=== PATIENT | female | born 2000 | race Caucasian/White ===

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

== ENCOUNTER → 2023-05-29 | Outpatient (CLI) | payer OTHER, SELFPAY | END | disposition home or self-care (01) | LOC: PSN 09:24 | PROVIDERS: PCP Nurse Practitioner; Referring Provider Nurse Practitioner; Visit Provider Nurse Practitioner | DX: J45.909 Unspecified asthma, uncomplicated (principal) | CPT/HCPCS: 94060; 94726; 94729 ==

== ENCOUNTER → 2023-08-10 | Outpatient (CLI) | payer OTHER, SELFPAY ==
[2023-08-10 12:22] LABS: Absolute Lymphocyte Count 1.89 X10^3/uL (0.83-4.51); Absolute Neutrophil Count 4.4 X10^3/uL (2.0-7.7); Basophil# 0.05 X10^3/uL; Basophil% 0.7 % (0-1); Eosinophil# 0.61 X10^3/uL; Eosinophils% 8.1 % (0-5); Hematocrit 45.3 % (37-47); Hemoglobin 15.1 g/dL (12.0-15.0); Lymphocyte # 1.89 X10^3/ul (0.83-4.51); Lymphocyte % 25.1 % (19-41); Mean Corp Hgb Conc 33.3 g/dL (32-36); Mean Corpuscular Hgb 31.5 pg (27.0-32.0); Mean Corpuscular Volume 94.6 fL (81-99); Monocyte# 0.48 X10^3/uL; Monocyte% 6.4 % (0-10); NRBC Flagged by Analyzer 0 % (0-5); Neutrophil # 4.43 X10^3/uL (2.7-7.7); Neutrophil % 58.6 % (47-70); Platelet Count 260 K/mm3 (150-450); RBC Distribution Width CV 13.1 % (11.6-14.6); RBC Distribution Width SD 45.3 fl (35.1-43.9); Red Blood Count 4.79 M/mm3 (4.2-5.4); White Blood Count 7.5 K/mm3 (4.4-11.0)
[2023-08-10 13:13] LABS: AST(SGOT) 12 U/L (15-37); Alanine Aminotransfer ALT/SGPT 20 U/L (13-56); Albumin, Serum 3.9 g/dL (3.2-5.0); Alkaline Phosphatase 114 U/L (45-117); Anion Gap 6 (5-15); BUN 9 mg/dL (7-18); BUN/Creat Ratio 15.3 RATIO (10-20); Calcium,Total 8.9 mg/dL (8.5-10.1); Chloride 109 mmol/L (98-107); Creatinine, Serum 0.59 mg/dL (0.55-1.02); EST Glomerular Filtration Rate 137 mL/min (>60); Est Glom Filt Rate - Afr Amer 166 mL/min (>60); Free T3 3.1 pg/mL (2.18-3.98); Globulin 3.8 g/dL (2.2-4.2); Glucose 83 mg/dL (74-106); Potassium 3.8 mmol/L (3.5-5.1); Protein, Total 7.7 g/dL (6.4-8.2); Sodium Level 139 mmol/L (136-145); T4 Free Direct 0.91 ng/dL (0.76-1.46); T4 Total, Thyroxin 7.1 ug/dL (4.8-13.9); Thyroid Stim Hormone (TSH) 0.84 uIU/mL (0.358-3.74)
== END | disposition home or self-care (01) ==
LOC: LAB 11:11
PROVIDERS: PCP Nurse Practitioner; Referring Provider Nurse Practitioner; Visit Provider Nurse Practitioner
DX: R00.2 Palpitations (principal); G47.00 Insomnia, unspecified; F41.9 Anxiety disorder, unspecified; J45.909 Unspecified asthma, uncomplicated
CPT/HCPCS: 36415; 80053; 83735; 84436; 84439; 84443; 84481; 85025

== ENCOUNTER 2024-11-03 19:02 | Emergency (ER) | payer OTHER, SELFPAY ==
[2024-11-03 19:02] VITALS: BP 150/138; PULSE 146; RESP 24; TEMP 37.1; O2SAT 95; BMI 22.0
[2024-11-03 19:10] VITALS: O2SAT 94
--- NOTE | 2024-11-03 19:10 | EKG12_ITS ---
Test Reason : CP Blood Pressure : */* mmHG Vent. Rate : 128 BPM Atrial Rate : 128 BPM P-R Int : 132 ms QRS Dur : 74 ms QT Int : 286 ms P-R-T Axes : 67 84 47 degrees QTcB Int : 417 ms Sinus tachycardia Otherwise normal ECG Confirmed by Alfonso Lerma ([id number]), editor managing director STEVEN RIOS ([id number]) on 11/04/2024 11:27:39 AM Referred By: ES Confirmed By: Alfonso Lerma
--- NOTE | 2024-11-03 19:10 | EKG12_ITS ---
Test Reason : CP Blood Pressure : */* mmHG Vent. Rate : 128 BPM Atrial Rate : 128 BPM P-R Int : 132 ms QRS Dur : 74 ms QT Int : 286 ms P-R-T Axes : 67 84 47 degrees QTcB Int : 417 ms Sinus tachycardia Otherwise normal ECG Confirmed by Alfonso Lerma ([id number]), research editor STEVEN RIOS ([id number]) on 11/04/2024 11:27:39 AM Referred By: ES Confirmed By: Alfonso Lerma
--- NOTE | 2024-11-03 19:29 | EDS_ITS ---
HPI History of Present Illness Chief Complaint: Shortness of Breath Informant: patient Onset/Context/Timing Onset: Today Context: gradual Timing: Continuous Quality: Positive for Wheezing Worsened by: Nothing Relieved by: Albuterol Associated Symptoms cough, rhinorrhea, post nasal drip and sore throat; Negative for ear pain, fever , chills, sweats, clear sputum, white sputum, yellow sputum or green sputum Chest Pain: Positive for Tightness Narrative Narrative: Patient presents with shortness of breath became worse today. Patient states it is gradually getting worse. Patient states she feels herself wheezing. Patient states nothing makes it worse. Patient states that albuterol aerosols have been helping. Patient admits to a cough but denies any sputum production. Patient admits to recent sinus drainage and infection. Patient denies any fevers or chills. Patient describes her pain as tightness across her chest. PE Risk Factors: Negative for Cancer, OCP + Smoking + > 35, Prior DVT or PE, Rec ent immobilization, Recent surgery or Recent travel [facility] Medical History (Updated 11/03/24 @ 21:[address] Clifton Torres, DO) Postural orthostatic tachycardia syndrome Asthma Home Medications ?Medication ?Instructions ?Recorded ?Last Taken ?Type fluticasone 55 mcg-salmeterol 14 2 inh inhalation BID #1 ea 08/09/23 Unknown Rx mcg/actuation breath activated powder levocetirizine 5 mg tablet 5 mg PO QPM #90 tabs Unknown Rx nitrofurantoin 1 cap PO BID 10/04/23 Unknow n History monohydrate/macrocrystals 100 mg capsule paroxetine HCl 20 mg tablet 20 mg PO DAILY #90 tabs Unknown Rx trazodone 50 mg tablet 50 mg PO QHS PRN insomnia 90 days 10/04/23 Unknown Rx #1 TAB albuterol sulfate 90 mcg/actuation 2 puff inhalation Q 4H PRN PRN 11/03/24 Unknown Rx aerosol inhaler (Ventolin HFA) Wheezing ##1 prednisone 20 mg tablet 60 mg (3 x 20 mg) PO DAILY # 15 11/03/24 Unknown Rx TABLETS Allergy/AdvReac Type Severity Reaction Status Date / Time animal dander Allergy Mild Hives Verified 11/03/24 19:05 Surgical History (Updated 11/03/24 @ 19:[address] Clifton Torres DO) Hx of tonsillectomy Social History Smoking Status: Light Smoker (<10/day) alcohol intake: never substance use type: does not use, marijuana and other details: medical,card what type of physical activity do you participate in: none ROS ROS ED Constitutional Constitutional ED: Denies chills or fever(s) Eyes Eyes: Denies blurry vision or change in vision ENT ENT ED: Reports rhinorrhea and sore throat Cardiovascular Cardiovascular: Reports chest pain; Denies palpitations Respiratory/Chest Respiratory/Chest: Reports cough and dyspnea Gastrointestinal Gastrointestinal: Denies nausea or vomiting Genitourinary Genitourinary ED: Denies dysuria or hematuria Musculoskeletal Musculoskeletal: Denies back pain or neck pain Integumentary Denies abscess or rash Neurologic Neurologic: Reports headache(s); Denies weakness Allergic/Immunologic Allergic/Immunologic ED: Denies mouth swelling or urticaria EXAM Physical Exam Const Vital Signs: 11/03/24 19:02 11/03/24 19:10 11/03/24 19:57 Temperature 98.7 F Temperature Source Temporal Pulse Rate 146 H 134 H Respiratory Rate 24 H 16 Respiratory Effort Short of Breath Respiratory Pattern Tachypnea Normal Blood Pressure 150/138 H Blood Pressure Mean 142 Pulse Ox 95 Oxygen Delivery Method Room Air Room Air 11/03/24 20:02 Temperature 98.1 F Temperature Source Oral Pulse Rate 131 H Respiratory Rate 20 H Respiratory Effort Respiratory Pattern Blood Pressure 123/93 H Blood Pressure Mean 103 Pulse Ox 96 Oxygen Delivery Method Room Air Positive well nourished and well developed General Appearance ED: well developed and NAD HEENT Reports moist mucous membranes atraumatic Neck supple, no meningeal signs and no JVD Resp normal respiratory effort Auscultation: wheezes expiratory wheezes and throughout Cardio regular rhythm Rate: tachycardic GI non-tender and non-distended Neuro oriented x3, CN's II-XII intact bilaterally and no sensory deficits noted Stephy Coma Scale: document GCS findings Spontaneous Obeys Commands Oriented 15 Sensorium / Orientation: alert Motor Exam: strength 5/5 throughout Psych mental status grossly normal MDM MDM MDM Narrative Medical decision making narrative: Differential diagnosis includes asthma exacerbation, pneumonia, bronchitis, viral upper respiratory infection, cardiac dysrhythmia, cardiac ischemia, and anxiety. EKG will be obtained to assess for cardiac dysrhythmia and cardiac ischemia. Chest x-ray will be obtained to assess for pneumonia and bronchitis. CBC will be obtained to assess for leukocytosis and anemia. Basic metabolic profile will be obtained to assess for electrolyte abnormality and renal function. History & Record Review Additional record(s) reviewed:: Prior outpatient record, Prior ED visit and Prior labs Lab Data Attestation: I reviewed the patient's lab results. Lab results narrative: CBC was reviewed and was within normal limits. Basic metabolic profile was reviewed. Potassium was slightly low at 3.2. This is likely due to the frequent aerosols. The remainder is within normal limits. Labs: Laboratory Results - last 24 hr 11/03/24 19:13 WBC 9.9 RBC 5.15 Hgb 16.0 H Hct 47.6 H MCV 92.4 MCH 31.1 MCHC 33.6 RDW Std Deviation 43.9 RDW Coeff of Jurgen 12.9 Plt Count 190 MPV 9.3 Immature Gran % (Auto) 0.500 Neut % (Auto) 78.1 H Lymph % (Auto) 10.2 L [place] % (Auto) 8.1 Eos % (Auto) 2.5 Baso % (Auto) 0.6 Absolute Neuts (auto) 7.7 Absolute Lymphs (auto) 1.01 Nucleated RBC % 0 Sodium 142 Potassium 3.2 L Chloride 106 Carbon Dioxide 20.0 L Anion Gap 16 H BUN 5 Creatinine 0.68 L Estim Creat Clear Calc 130.91 Est GFR (MDRD) Non-Af 126 BUN/Creatinine Ratio 7.7 L Glucose 90 Calcium 9.3 Radiography Chest X-Ray - ED: 2 View, Read by ED Physician, Read by Radiologist and No Acute Disease Diagnostic Testing: Clinical Impression(s) from Imaging Studies Chest X-Ray 11/03/24 19:40 IMPRESSION: No focal consolidation. Reading Location: [facility] PA and lateral chest x-ray was obtained. There are 2 views. On my independent interpretation, lung haynes are clear. There is normal cardiac silhouette. Bony thorax is normal. There is no acute process noted. Radiologist also interpreted the x-ray and agrees. EKG Initial EKG: Attestation: I personally reviewed and interpreted this EKG as follows: Interpretation: No Acute Injury Pattern and Sinus Tachycardia (128) Comments: EKG was obtained. On my independent interpretation, it showed a sinus tachycardia with a rate of 128. PA interval, QRS interval, and QTc intervals were all normal. Collins was normal. There are no acute ST or T wave changes. Prior EKG tracings: not available for review Prior: No Prior Treatment and Re-Evaluation :: Patient was given albuterol aerosol here. Patient was seen in urgent care and was given a DuoNeb aerosol prior to arrival. Patient was given a dose of Solu- Medrol here. Patient was feeling better on reevaluation. Patient only had a very slight expiratory wheeze on reevaluation. Patient was given a prescription for prednisone. Patient stated she needed a refill of her albuterol inhaler. This was prescribed as well. Patient was instructed to follow-up with her primary care physician in 5 to 7 days. Patient understood and was agreeable with the plan. All questions were answered. Discharge Plan Triage Chief Complaint: Shortness of Breath ED Provider: Clifton Torres Dx/Rx/DC Orders Clinical Impression: Asthma, Tachycardia Instructions: ED Asthma, Acute (Adult) Prescriptions: New prednisone 20 mg tablet 60 mg PO DAILY Qty: 15 0RF albuterol sulfate [Ventolin HFA] 90 mcg/actuation HFA aerosol inhaler 2 puff inhalation Q4H PRN PRN (Reason: Wheezing) Qty: 1 0RF Discontinued albuterol sulfate 90 mcg/actuation HFA aerosol inhaler 2 puff inhalation Q6H PRN (Reason: shortness of breath or wheezing) 90 Days Qty: 8.5 1RF No Action levocetirizine 5 mg tablet 5 mg PO QPM Qty: 90 0RF fluticasone propion-salmeterol 55-14 mcg/actuation aerosol powdr breath activated 2 inh inhalation BID Qty: 1 2RF nitrofurantoin monohyd/m-cryst 100 mg capsule 1 cap PO BID paroxetine HCl 20 mg tablet 20 mg PO DAILY Qty: 90 1RF trazodone 50 mg tablet 50 mg PO QHS PRN (Reason: insomnia) 90 Days Qty: 1 1RF Primary Care Provider: Care Physician,No Primary Referrals: Gretchen Westfall NP-C [Med Staff - Adv Practice Prof] - 5-7 Days Print Language: Citizen Of [place] Disposition Disposition: Home, Self Care
[2024-11-03 19:38] LABS: Hematocrit 47.6 % (37-47); Hemoglobin 16.0 g/dL (12.0-15.0); Immature Granulocytes Count 0.050 X10^3/uL (0.0-0.0); Mean Corp Hgb Conc 33.6 g/dL (32-36); Mean Corpuscular Volume 92.4 fL (81-99); Mean Platelet Vol. 9.3 fl (6.2-12.0); NRBC Flagged by Analyzer 0 % (0-5); Platelet Count 190 K/mm3 (150-450); RBC Distribution Width CV 12.9 % (11.6-14.6); RBC Distribution Width SD 43.9 fl (35.1-43.9); Red Blood Count 5.15 M/mm3 (4.2-5.4); White Blood Count 9.9 K/mm3 (4.4-11.0)
--- NOTE | 2024-11-03 19:40 | RAD_ITS ---
PROCEDURE: CHEST PA AND LATERAL 11/03/2024 REASON FOR EXAM: DYSPNEA TECHNIQUE: CHEST PA AND LATERAL COMPARISON: 01/22/2021 FINDINGS: No focal consolidation. No pleural effusion or pneumothorax. Cardiac silhouette is within normal limits. No acute fractures. RAD/Chest PA and Lateral IMPRESSION: No focal consolidation. Reading Location: [id number]
--- NOTE | 2024-11-03 19:40 | RAD_ITS ---
PROCEDURE: CHEST PA AND LATERAL 11/03/2024 REASON FOR EXAM: DYSPNEA TECHNIQUE: CHEST PA AND LATERAL COMPARISON: 01/22/2021 FINDINGS: No focal consolidation. No pleural effusion or pneumothorax. Cardiac silhouette is within normal limits. No acute fractures. RAD/Chest PA and Lateral IMPRESSION: No focal consolidation. Reading Location: [id number]
[2024-11-03 19:57] VITALS: PULSE 134; RESP 16
[2024-11-03] MEDS: Albuterol 2.5 MG/3 ML VIAL.NEB. INHALATION (19:57)
[2024-11-03 20:02] VITALS: BP 123/93; PULSE 131; RESP 20; TEMP 36.7; O2SAT 96
[2024-11-03 20:10] LABS: Anion Gap 16 (5-15); BUN 5 mg/dL (4-19); BUN/Creat Ratio 7.7 RATIO (10-20); Calcium,Total 9.3 mg/dL (7.6-11.0); Carbon Dioxide 20.0 mmol/L (21.0-32.0); Chloride 106 mmol/L (98-108); Estimated Creatinine Clearance 130.91 ml/min (50-250); Glucose 90 mg/dL (70-99); Potassium 3.2 mmol/L (3.3-5.1)
--- NOTE | 2024-11-03 20:19 | CM.ED ---
Social work Reason for referral: no PCP Referral source: case find SW identified patient's lack of PCP and need for resources. SW entered patient's room, introducing self and role at [facility]. Patient welcomed SW visit and confirmed lack of PCP. Patient accepted resources of [facility] Provider Directory and Dennise Cunningham information. Patient expressed some frustration with providers leaving after patient gets established and/or nobody taking new patients where patient has called. No further needs identified. Jenn Mejia, [employer]ER, EMPLOYMENT EDUCATIONAL [employer]ORD
--- NOTE | 2024-11-03 20:19 | CM.ED ---
Social work Reason for referral: no PCP Referral source: case find SW identified patient's lack of PCP and need for resources. SW entered patient's room, introducing self and role at [facility]. Patient welcomed SW visit and confirmed lack of PCP. Patient accepted resources of [facility] Provider Directory and Dennise Cunningham information. Patient expressed some frustration with providers leaving after patient gets established and/or nobody taking new patients where patient has called. No further needs identified. Jenn Mejia, QA CONSULTANT, LUSTERER
[2024-11-03 21:18] VITALS: BP 100/70; PULSE 117; RESP 20; TEMP 36.7; O2SAT 96
== END 2024-11-03 21:19 | disposition home or self-care (01) ==
PROVIDERS: Emergency Provider Emergency Medicine; Visit Provider Emergency Medicine
DX: J45.909 Unspecified asthma, uncomplicated (principal); R00.0 Tachycardia, unspecified; F17.210 Nicotine dependence, cigarettes, uncomplicated; R05.9 Cough, unspecified; J02.9 Acute pharyngitis, unspecified; J34.89 Other specified disorders of nose and nasal sinuses
CPT/HCPCS: 71046; 80048; 85025; 93005; 94640; 96374; 99284; A4216

== ENCOUNTER 2024-12-02 14:39 | Emergency (ER) | payer OTHER, SELFPAY ==
[2024-12-02] VITALS (7 sets, daily range): BP systolic 107–141; BP diastolic 76–108; PULSE 86–132; RESP 16–20; TEMP 36.6; O2SAT 93–98; BMI 25.3
--- NOTE | 2024-12-02 15:11 | EDS_ITS ---
HPI History of Present Illness Chief Complaint: Shortness of Breath Informant: patient Narrative Narrative: Here with her mother for evaluation of worsening dyspnea since yesterday. Productive cough for the past 5 days. No fever or chills. States rattling in her chest. Asthma history wheezing using her inhaler last used an hour ago. Occasional tobacco. No diabetes. History of POTS syndrome. No vomiting diarrhea. Was seen 3 weeks ago per patient for asthma flare improved with steroids. Reported she was 87% room air on arrival she is placed on 2 L. She is tachycardic however she reports history of POTS syndrome. She also does have a nebulizer at home. PE Risk Factors: Negative for Cancer, OCP + Smoking + > 35, Prior DVT or PE, Recent immobilization, Recent surgery or Recent travel Prior similar symptoms: [facility] Medical History Postural orthostatic tachycardia syndrome Asthma Home Medications ?Medication ?Instructions ?Recorded ?Last Taken ?Type fluticasone 55 mcg-salmeterol 14 2 inh inhalation BID #1 ea 08/09/23 Unknown Rx mcg/actuation breath activated powder levocetirizine 5 mg tablet 5 mg PO QPM #90 tabs Unknown Rx nitrofurantoin 1 cap PO BID 10/04/23 Unknow n History monohydrate/macrocrystals 100 mg capsule paroxetine HCl 20 mg tablet 20 mg PO DAILY #90 tabs Unknown Rx trazodone 50 mg tablet 50 mg PO QHS PRN insomnia 90 days 10/04/23 Unknown Rx #1 TAB albuterol sulfate 90 mcg/actuation 2 puff inhalation Q 4H PRN PRN 11/03/24 Unknown Rx aerosol inhaler (Ventolin HFA) Wheezing ##1 prednisone 20 mg tablet 60 mg (3 x 20 mg) PO DAILY # 15 11/03/24 Unknown Rx TABLETS albuterol sulfate 2.5 mg/3 mL 2.5 mg (3 mL) inhalation Q4H PRN 12/02/24 Unknown Rx (0.083 %) solution for nebulization #25 vials albuterol sulfate 90 mcg/actuation 1 - 2 puff inhalati on Q4H PRN PRN 12/02/24 Unknown Rx aerosol inhaler (Ventolin HFA) Wheezing ##1 prednisone 20 mg tablet 60 mg (3 x 20 mg) PO DAILY # 12 12/02/24 Unknown Rx TABLETS Allergy/AdvReac Type Severity Reaction Status Date / Time animal dander Allergy Mild Hives Verified 11/03/24 19:05 Surgical History Hx of tonsillectomy Social History Smoking Status: Light Smoker (<10/day) alcohol intake: never substance use type: does not use, marijuana and other details: medical,card what type of physical activity do you participate in: none ROS ROS ED Constitutional Constitutional ED: Denies fever(s) Cardiovascular Cardiovascular: Denies chest pain Respiratory/Chest Respiratory/Chest: Reports cough and dyspnea Gastrointestinal Gastrointestinal: Denies diarrhea or vomiting Musculoskeletal Musculoskeletal: Denies none Integumentary Denies rash or wounds Neurologic Neurologic: Denies weakness EXAM Physical Exam Const Vital Signs: 12/02/24 14:39 12/02/24 15:30 12/02/24 15:30 Temperature 97.8 F Temperature Source Temporal Pulse Rate 132 H Respiratory Rate 20 H Respiratory Effort Short of Breath Accessory Muscle Use Respiratory Depth Deep Respiratory Pattern Tachypnea Blood Pressure 116/80 Blood Pressure Mean 92 Pulse Ox 95 Oxygen Delivery Method Nasal Cannula Room Air Nasal Cannula Oxygen Flow Rate (L/min) 2 2 12/02/24 15:39 12/02/24 16:00 12/02/24 17:00 Temperature 97.8 F Temperature Source Oral Pulse Rate 90 98 86 Respiratory Rate 20 H 17 16 Respiratory Effort Respiratory Depth Respiratory Pattern Blood Pressure 141/108 H 107/82 H 113/76 Blood Pressure Mean 119 90 88 Pulse Ox 95 95 93 Oxygen Delivery Method Nasal Cannula Room Air Room Air Oxygen Flow Rate (L/min) 2 12/02/24 17:36 Temperature 97.8 F Temperature Source Pulse Rate 86 Respiratory Rate 16 Respiratory Effort Respiratory Depth Respiratory Pattern Blood Pressure 113/76 Blood Pressure Mean 88 Pulse Ox 93 Oxygen Delivery Method Oxygen Flow Rate (L/min) Positive well nourished and well developed General Appearance ED: well developed and NAD HEENT Reports moist mucous membranes normocephalic and atraumatic Eyes General Eye ED: Yes normal appearance of both eyes Neck full ROM Chest Wall Chest: Negative for tenderness Resp normal respiratory effort and normal air movement Resp Narrative: No current wheezing Effort and Inspection: symmetric chest movement; Negative for respiratory distress Cardio regular rate and no murmurs Rate: tachycardic and other Other Details: 109 Peripheral Pulses: pulses 2+ throughout GI normal to inspection, nondistended, normoactive bowel sounds and non-tender Palpation: Negative for guarding or rebound tenderness present Extremity normal to inspection General Extremety ED: Negative for edema or tenderness General Extremity: Negative for edema Neuro oriented x3 and no sensory deficits noted Sensorium / Orientation: awake and alert Skin no rashes or lesions noted and no wounds MDM MDM MDM Narrative Medical decision making narrative: Interventions / MDM: Differential diagnosis: Asthma exacerbation, bronchitis Diagnosis considered but do not suspect: Pneumonia however x-ray negative. My EKG interpretation: N/A Imaging independently reviewed and interpreted by myself: 2 view chest x-ray: No acute process also read by radiology. External documents reviewed: N/A Test considered but not ordered:N/A ED course: Patient was tachycardic however needs to inhaler. On nasal cannula 2 L currently reports 86 on room air on arrival. No current wheezing. Given gentle fluids labs were drawn [facility] two-view chest x-ray. 1700: Chest x-ray negative labs had a white count of 15. Normal electrolytes. Clinically feeling much better she is off oxygen. Heart rate down in the 90s. Awaiting for viral swab results. Will ambulate the patient on room air for disposition plans. COVID, flu, RSV negative. Patient ambulated dropped to 91% however was not dyspneic. Not tachycardic. Clinically feeling better. Will place her admission for steroids for additional 4 days. Refill of her nebulizer and her MDI inhaler. She requests referral to pulmonology which was given to her as she has had more frequent flares of her asthma. Outpatient follow-up with return precautions. All questions were answered. Re-evaluation: stable Disposition discussed with patient/family/significant other: Patient and family Case discussed with consulting clinician: N/A This note was generated with [employer] dictation software. It may contain incorrect words, spelling, and punctuation that were not noted in checking the note before signing. Lab Data Attestation: I reviewed the patient's lab results. Labs: Laboratory Results - last 24 hr 12/02/24 15:13 WBC 15.4 H RBC 5.12 Hgb 16.2 H Hct 46.9 MCV 91.6 MCH 31.6 MCHC 34.5 RDW Std Deviation 42.6 RDW Coeff of Jurgen 12.8 Plt Count 297 MPV 8.8 Immature Gran % (Auto) 0.400 Neut % (Auto) 57.3 Lymph % (Auto) 18.5 L [place] % (Auto) 6.8 Eos % (Auto) 16.1 H Baso % (Auto) 0.9 Absolute Neuts (auto) 8.8 H Absolute Lymphs (auto) 2.85 Nucleated RBC % 0 Differential Comment SCANNED Platelet Estimate ADEQUATE Sodium 141 Potassium 3.9 Chloride 107 Carbon Dioxide 19.4 L Anion Gap 14 BUN 8 Creatinine 0.61 L Est GFR (MDRD) Non-Af 129 BUN/Creatinine Ratio 12.8 Glucose 89 Calcium 9.4 Radiography Diagnostic Testing: Clinical Impression(s) from Imaging Studies Chest X-Ray 12/02/24 15:30 IMPRESSION: NO ACUTE FINDINGS. Reading [facility] Triage Chief Complaint: Shortness of Breath ED Provider: Kuldip Carrion Dx/Rx/DC Orders Clinical Impression: Asthma exacerbation, Bronchitis Instructions: ED Asthma, Acute (Adult), ED Bronchitis, No Antibiotic (Adult) Prescriptions: New albuterol sulfate 2.5 mg /3 mL (0.083 %) solution for nebulization 2.5 mg inhalation Q4H PRN Qty: 25 0RF Rx Instructions: Use q4 hours and PRN for wheezing prednisone 20 mg tablet 60 mg PO DAILY Qty: 12 0RF albuterol sulfate [Ventolin HFA] 90 mcg/actuation HFA aerosol inhaler 1 - 2 puff inhalation Q4H PRN PRN (Reason: Wheezing) Qty: 1 0RF No Action levocetirizine 5 mg tablet 5 mg PO QPM Qty: 90 0RF fluticasone propion-salmeterol 55-14 mcg/actuation aerosol powdr breath activated 2 inh inhalation BID Qty: 1 2RF nitrofurantoin monohyd/m-cryst 100 mg capsule 1 cap PO BID paroxetine HCl 20 mg tablet 20 mg PO DAILY Qty: 90 1RF trazodone 50 mg tablet 50 mg PO QHS PRN (Reason: insomnia) 90 Days Qty: 1 1RF prednisone 20 mg tablet 60 mg PO DAILY Qty: 15 0RF albuterol sulfate [Ventolin HFA] 90 mcg/actuation HFA aerosol inhaler 2 puff inhalation Q4H PRN PRN (Reason: Wheezing) Qty: 1 0RF Primary Care Provider: Bartolo Treviño Referrals: Jimmy Felton DO [Med Staff - Active Staff] - 1-2 Weeks Care Physician,No Primary [Non-Staff] - Activity Restrictions/Additional Instructions: Chest x-ray negative. Continue steroids. Inhalers as needed. Follow-up with pulmonology as requested. Medication sent to your pharmacy for refills. Print Language: Nepalese Disposition Disposition: Home, Self Care Discharge Date/Time: 12/02/24 17:37
[2024-12-02] MEDS: 0.9% Normal Saline (500mL Bag) 500 ML 1000 ML IV (15:21)
[2024-12-02 15:28] LABS: Hematocrit 46.9 % (37-47); Hemoglobin 16.2 g/dL (12.0-15.0); Immature Granulocytes Count 0.060 X10^3/uL (0.0-0.0); Mean Corp Hgb Conc 34.5 g/dL (32-36); Mean Corpuscular Volume 91.6 fL (81-99); Mean Platelet Vol. 8.8 fl (6.2-12.0); NRBC Flagged by Analyzer 0 % (0-5); POSITIVE DIFFERENTIAL YES; Platelet Count 297 K/mm3 (150-450); RBC Distribution Width CV 12.8 % (11.6-14.6); RBC Distribution Width SD 42.6 fl (35.1-43.9); Red Blood Count 5.12 M/mm3 (4.2-5.4); White Blood Count 15.4 K/mm3 (4.4-11.0)
--- NOTE | 2024-12-02 15:30 | RAD_ITS ---
PROCEDURE: CHEST PA AND LATERAL 12/02/2024 REASON FOR EXAM: COUGH TECHNIQUE: CHEST PA AND LATERAL COMPARISON: 11/03/2024 FINDINGS: Hardware: None. Heart: The heart size is normal. Mediastinum: The mediastinal contour is unremarkable. Lungs: The lungs are clear. Bones: The bones are unremarkable. RAD/Chest PA and Lateral IMPRESSION: NO ACUTE FINDINGS. Reading Location: [facility]
[2024-12-02 15:33] LABS: Differential Indicated SCAN CRITERIA MET
[2024-12-02 15:39] LABS: Anion Gap 14 (5-15); BUN 8 mg/dL (4-19); BUN/Creat Ratio 12.8 RATIO (10-20); Calcium,Total 9.4 mg/dL (7.6-11.0); Carbon Dioxide 19.4 mmol/L (21.0-32.0); Chloride 107 mmol/L (98-108); Glucose 89 mg/dL (70-99); Potassium 3.9 mmol/L (3.3-5.1)
[2024-12-02 17:24] LABS: Differential Comment SCANNED
== END 2024-12-02 17:37 | disposition home or self-care (01) ==
PROVIDERS: Emergency Provider Emergency Medicine; PCP Family Medicine; Visit Provider Emergency Medicine
DX: J45.901 Unspecified asthma with (acute) exacerbation (principal); F17.200 Nicotine dependence, unspecified, uncomplicated
CPT/HCPCS: 71046; 80048; 85025; 87631; 96361; 96374; 99284; A4216